=== PATIENT | female | born 1945 | race Caucasian/White ===

== ENCOUNTER → 2016-11-20 | Outpatient (CLI) | payer OTHER ==
--- NOTE | 2016-11-20 11:17 | MA ---
Screening Digital Mammogram Clinical Indications: Routine screening. Strong family history of breast cancer in mother, maternal g randmother, sister and various maternal aunts Technique: Standard cephalocaudal and mediolateral oblique projections are obtained. An additional c c view is performed of the left breast. This examination was processed by the [facility] computer aided det ection system. Comparison: August 2014, July 2013, July 2012 and January 2011 Breast density: C; The breast tissue is heterogeneously dense, which could obscure detection of small masses. Findings: CAD was reviewed. Developing density with possible architectural distortion in the right br east seen only on the cc view and in the deep central left breast seen only on the oblique lateral vi ew. The remainder of the left and right breast are stable.. Impression: Asymmetries in each breast.. BI-RADS 0 additional imaging bilaterally. Recommendation: Bilateral spot compression and true lateral views. Off midline CC views by 5 degrees of the right breast. If persistent attempt to localize in the orthogonal plane mammographically, and then proceed to ultrasound for further characterization and localization purposes. Considering the patient's family history she may be a candidate for genetic counseling and utilizing breast MRI as a complement to annual screening mammography. [facility] will send a result letter to the patient. Negative mammography should not preclude additional workup of a clinically suspicious finding. The patient's information is entered into a reminder system with a target due date for her next mammo gram.
== END ==
LOC: CIMAGING 10:04
DX: Z12.31 Encounter for screening mammogram for malignant neoplasm of breast (principal); Z80.3 Family history of malignant neoplasm of breast
CPT/HCPCS: G0202

== ENCOUNTER → 2016-12-02 | Outpatient (CLI) | payer OTHER ==
--- NOTE | 2016-12-02 14:15 | MA ---
Bilateral Digital Diagnostic Mammogram Clinical Indications: Asymmetries on screening mammograms. Technique: Bilateral true lateral, CC spot compression and CC off angle views of the right breast and MLO spot compression views of the left breast. Comparison: Mammograms through December 12, 2006. Findings: The asymmetries on screening mammograms do not persist with additional views. These were li eric related to overlapping fibroglandular tissue. No suspicious masses are identified. Impression: Negative mammogram. BI-RADS 1. Recommendation: Routine screening is recommended in one year, as long as physical examination is kevin ign in this patient with moderately dense breast parenchyma. Findings and recommendations were given to the patient at the time of the study. [facility] will send a result letter to the patient. Negative mammography should not preclude additional workup of a clinically suspicious finding. The patient's information is entered into a reminder system with a target due date for her next mammo gram.
== END ==
LOC: CIMAGING 13:17
DX: Z12.39 Encounter for other screening for malignant neoplasm of breast (principal); R92.2 Inconclusive mammogram

== ENCOUNTER → 2018-02-11 | Outpatient (CLI) | payer OTHER | LOC: FIMAGING 14:55 | PROVIDERS: ATTEND Internal Medicine | DX: Z13.820 Encounter for screening for osteoporosis (principal); M81.0 Age-related osteoporosis without current pathological fracture ==

== ENCOUNTER → 2019-04-09 | Outpatient (CLI) | payer OTHER | LOC: CIMAGING 10:18 ==